=== PATIENT | female | born 1990 ===

== ENCOUNTER 2021-06-04 06:40 | Day surgery (SDC) | payer OTHER ==
[~2021-06-04 06:40] MED LIST: TREXIMET 85-501 EACH PO
== END 2021-06-04 15:40 | disposition home or self-care (01) ==
LOC: CIR.AMB 06:40
PROVIDERS: ATTEND Orthopaedic Surgery Hand Surgery
DX: M93.1 Kienbock's disease of adults (principal)

== ENCOUNTER 2021-10-08 05:45 | Day surgery (SDC) | payer OTHER | END 2021-10-08 12:25 | disposition home or self-care (01) | LOC: CIR.AMB 05:45 | PROVIDERS: ATTEND Orthopaedic Surgery Hand Surgery | DX: T84.89XA Other specified complication of internal orthopedic prosthetic devices, implants and grafts, initial encounter (principal); M93.1 Kienbock's disease of adults; Z20.822 Contact with and (suspected) exposure to COVID-19; Z86.16 Personal history of COVID-19; G43.909 Migraine, unspecified, not intractable, without status migrainosus; M19.90 Unspecified osteoarthritis, unspecified site; E66.9 Obesity, unspecified ==